=== PATIENT | female | born 1980 | race Hispanic/Latino ===

== ENCOUNTER 2022-09-25 08:42 | Day surgery (SDC) | payer MEDICAID ==
[~2022-09-25] VITALS: Ht 165.1 cm; Wt 67.1 kg
[~2022-09-25 08:42] MED LIST: ALPRAZOLAM0.25 MG PO; BL IBUPROFEN200 MG PO; LEXAPRO10 MG PO; PEPCID PO; TRAMADOL HCL50 MG PO
[2022-09-25] MEDS ORDERED: PERCOCET 5/321 COMBO PO (10:23)
[2022-09-25 11:55] VITALS: BP 114/58
== END 2022-09-25 12:00 | disposition home or self-care (01) ==
LOC: ORM 08:42
PROVIDERS: ATTEND Surgery
DX: K80.10 Calculus of gallbladder with chronic cholecystitis without obstruction (principal); F41.9 Anxiety disorder, unspecified; F32.A Depression, unspecified
CPT/HCPCS: J0131; J1610; J1956; Q9967